=== PATIENT | male | born 1935 | race Two or more races ===

== ENCOUNTER 2017-05-28 21:01 | Emergency (ER) | payer OTHER ==
[~2017-05-28] VITALS: Ht 172.7 cm; Wt 99.8 kg
[2017-05-28 22:48] LABS: Basophils # (auto) 0 uL; Eosinophils # (auto) 0.2 uL; Hemoglobin 10.8 g/dL (13.5-17.5); Lymphocytes # (auto) 0.2 uL; Monocytes # (auto) 0.3 uL; Neutrophils # (auto) 2.9 uL; White Blood Cell 3.6 10^3/uL (4.4-10.8)
[2017-05-28 22:50] LABS: Basophils % (auto) 0.5 % (0.0-2.0); Eosinophils % (auto) 5.2 % (0.0-7.0); Hematocrit 31.1 % (41.0-53.0); Lymphocytes % (auto) 6.5 % (10.0-50.0); Mean Corpuscular Hemoglobin 35.8 pg (28.0-32.0); Mean Corpuscular Hgb Conc. 34.8 g/dL (32.0-36.0); Mean Corpuscular Volume 102.8 fL (80.0-100.0); Monocytes % (auto) 8.2 % (0.0-12.0); Neutrophils % (auto) 79.6 % (37.0-80.0); Nucleated Red Blood Cells % 0.1 %; Platelet Count (auto) 65 10^3/uL (140-450); Red Blood Cells 3.03 10^6/uL (4.5-5.90); Red Cell Distribution Width 15.4 % (11.8-14.3)
[2017-05-28 22:54] LABS: Alanine Aminotransferase 24 U/L (16-61); Amylase 118 U/L (25-115); Anion Gap 6 (5-15); Aspartate Aminotransferase 41 U/L (15-37); BUN/Creatinine Ratio 21.7; Blood Urea Nitrogen 33 mg/dL (7-18); Calcium 8.2 mg/dL (8.5-10.1); Carbon Dioxide 23 mmol/L (21-32); Chloride 107 mmol/L (98-107); GFR African American 57 mL/min; GFR Non-African American 47 mL/min; Glucose 104 mg/dL (74-106); Lipase 329 U/L (73-393); Magnesium 2.2 mg/dL (1.6-2.6); Sodium 136 mmol/L (136-145)
[2017-05-28 23:00] LABS: Alkaline Phosphatase 79 U/L (45-117); Bilirubin, Total 1.2 mg/dL (0.2-1.0); Total Protein 6.9 g/dL (6.4-8.2)
[2017-05-28 23:01] LABS: INR 1.16 (0.9-1.15); Partial Thromboplastin Time 31.7 sec (22.64-33.71); Prothrombin Time 12.7 sec (9.37-12.3)
[2017-05-28 23:07] LABS: Potassium 5.7 mmol/L (3.5-5.1)
[2017-05-29] MEDS ORDERED: SODIUM POLYSTYRENE SULF 15GM/60ML SUSP PO ONE
[2017-05-29] MEDS ORDERED: NEOMYCIN-BACITRACIN-POLYM UNITDOSE PKG TOP OINT TOP ONE ×2 (00:05→00:30)
[2017-05-29 03:12] VITALS: BP 116/64
== END 2017-05-29 04:55 | disposition home or self-care (01) ==
LOC: EDBD 21:01 → ER 21:05
DX: S31.139A Puncture wound of abdominal wall without foreign body, unspecified quadrant without penetration into peritoneal cavity, initial encounter (principal); N28.9 Disorder of kidney and ureter, unspecified; E87.5 Hyperkalemia; E11.9 Type 2 diabetes mellitus without complications; I10 Essential (primary) hypertension; K70.31 Alcoholic cirrhosis of liver with ascites
CPT/HCPCS: 36415; 74176; 80053; 82150; 83605; 83690; 83735; 84484; 85025; 85610; 85730; 87040; 93005; 94761